=== PATIENT | male | born 1990 | race Caucasian/White ===

== ENCOUNTER 2017-02-03 14:13 | Emergency (ER) | payer SELFPAY ==
[2017-02-03 14:22] LABS: EOSINOPHIL (%) 0.3 % (0-5); HEMATOCRIT 40.7 % (38.0-50.0); IMMATURE GRANULOCYTE (%) 0.4 % (0.0-0.7); INSTRUMENT ABS NEUTROPHIL CT 8.2 K/uL; LYMPHOCYTE COUNT 1.6 K/uL (1.0-2.8); MCH 30.9 PG (29.0-34.0); MCHC 33.9 G/DL (30.0-36.0); MCV 91.3 FL (86-99); MEAN PLAT.VOLUME 8.9 uM^3 (9.0-12.4); MONOCYTE (%) 10.1 % (3-12); MONOCYTE COUNT 1.1 K/uL (0-0.8); NEUTROPHIL (%) 74.3 % (45-76); NEUTROPHIL COUNT 8.2 K/uL (1.8-6.4); PLATELET COUNT 260 K/uL (156-360); RBC DIS.WIDTH-CV 13.4 % (11.8-14.6); RBC DIS.WIDTH-SD 45.3 % (39-53); RED BLOOD COUNT 4.46 M/uL (4.00-5.50)
[2017-02-03 14:33] LABS: AMYLASE 25 IU/L (1-118); CHLORIDE 105 mEq/L (99-109); POTASSIUM 4.1 mEq/L (3.7-5.4); SODIUM 142 mEq/L (136-147)
[2017-02-03 14:35] LABS: GLUCOSE 104 mg/dL (70-99)
[2017-02-03 14:36] LABS: ANION GAP 8 MEQ/L (2-14)
[2017-02-03 14:38] LABS: SERUM ETHYL ALCOHOL < 10 mg/dL
[2017-02-03 14:39] LABS: GFR ESTIMATE (CALCULATED) > 59 mL/min/
[2017-02-03 14:40] LABS: UREA NITROGEN (BUN) 19 mg/dL (9-23)
[2017-02-03 14:42] LABS: LIPASE 11 U/L (1.0-51.0)
[2017-02-03 15:56] LABS: ADD MIUA? NO; BILIRUBIN NEGATIVE; BLOOD NEGATIVE; COLOR YELLOW ((YELLOW)); GLUCOSE (STRIP) NEGATIVE; KETONES NEGATIVE; LEUKOCYTES NEGATIVE; NITRITE NEGATIVE; PROTEIN (STRIP) NEGATIVE; UCUL ADDED? NO
[2017-02-03 16:06] LABS: THC CANNABINOIDS PRESUMPTIVE POSITIVE (50 ng/mL)
[2017-02-03 16:07] LABS: ADD MEDTOX COMMENT Y; AMPHETAMINE NEGATIVE (500 ng/mL); BARBITURATES NEGATIVE (200 ng/mL); BENZODIAZEPINES NEGATIVE (150 ng/mL); COCAINE NEGATIVE (150 ng/mL); INTERNAL CONTROLS VALID? YES; METHADONE NEGATIVE (200 ng/mL); METHAMPHETAMINE NEGATIVE (500 ng/mL); OPIATES (MORPHINE) NEGATIVE (100 ng/mL); OXYCODONE NEGATIVE (100 ng/mL); PHENCYCLIDINE NEGATIVE (25 ng/mL); PROPOXYPHENE NEGATIVE (300 ng/mL); TRICYCLIC ANTIDEPRESSANTS NEGATIVE (300 ng/mL)
[2017-02-03 16:28] LABS: MARIJUANA QUANT VALUE 0 NG/ML
== END 2017-02-03 16:48 | disposition home or self-care (01) ==
LOC: TRA 14:13
PROVIDERS: Emergency Medicine
PROC: 2W3QX1Z Immobilization of Right Lower Leg using Splint (ICD-10-PCS; principal; 2017-02-03)
DX: S82.891A Other fracture of right lower leg, initial encounter for closed fracture (principal); S00.81XA Abrasion of other part of head, initial encounter; S20.91XA Abrasion of unspecified parts of thorax, initial encounter; S01.81XA Laceration without foreign body of other part of head, initial encounter; S21.91XA Laceration without foreign body of unspecified part of thorax, initial encounter; Y00.XXXA Assault by blunt object, initial encounter; X99.1XXA Assault by knife, initial encounter; S22.32XA Fracture of one rib, left side, initial encounter for closed fracture; Y92.89 Other specified places as the place of occurrence of the external cause; Z59.0 Homelessness
CPT/HCPCS: 70450; 71260; 73590; 74177; 80048; 81003; 82150; 83690; 84999; 85025; 86900; 86901; 99281; 99284; G0480